=== PATIENT | female | born 1985 | race Caucasian/White ===

== ENCOUNTER 2016-07-12 18:36 | Emergency (ER) | payer OTHER ==
[~2016-07-12] VITALS: Ht 160 cm; Wt 47.7 kg
[2016-07-12 20:03] VITALS: BP 118/81
== END 2016-07-12 20:23 | disposition home or self-care (01) ==
LOC: EMS 18:41
DX: M25.511 Pain in right shoulder (principal); S43.101D Unspecified dislocation of right acromioclavicular joint, subsequent encounter
CPT/HCPCS: 99283